=== PATIENT | female | born 1950 | race Caucasian/White ===

== ENCOUNTER 2019-05-14 17:00 | Observation (INO) ==
[~2019-05-14 17:00] MED LIST: 0.9 % Sodium Chloride 1,000 ML IVC ONE
[2019-05-14 18:37] VITALS: BP 171/83
[2019-05-14] MEDS ORDERED: 0.9 % Sodium Chloride 500 ML IVC ONE ×2 (19:57→20:15)
[2019-05-14] MEDS ORDERED: Isovue-370 500 ML BOTTLE IVP ONE (20:27)
== END 2019-05-14 22:00 | disposition left against medical advice (07) ==
LOC: 1NENUPED 17:00 → INFINJ 17:00
PROVIDERS: ADMIT Surgery; ATTEND Surgery